=== PATIENT | male | born 1975 | race Caucasian/White ===

== ENCOUNTER 2016-10-29 11:54 | Emergency (ER) | payer OTHER ==
[2016-10-29] MEDS ORDERED: IOPAMIDOL 370 (76%) 100 ML VIAL IV ONE (11:55)
[2016-10-29 12:29] LABS: ABSOLUTE NEUTROPHIL COUNT 7.7 K/mm3 (1.8-7.7); BASO % 0.4 % (0.2-1.0); EOS # 0.2 (0.0-0.5); EOS % 1.8 % (0.9-2.9); HEMATOCRIT 46.6 % (32.0-52.0); HEMOGLOBIN 15.2 gm/l (14.0-18.0); IMM NEUT% 0.4 % (0-1); LYMPH # 1.7 (1.0-4.8); LYMPH % 16.6 % (15-45); MEAN CELL VOLUME 87.1 fl (80.0-94.0); MEAN CORPUSCULAR HEMOGLOBIN 28.4 pg (27.0-31.0); MEAN CORPUSCULAR HGB CONC 32.6 g/dl (33.0-37.0); MEAN PLATELET VOLUME 10.2 fl (7.4-10.4); MONO # 0.5 (0.0-0.8); NEUT % 75.8 % (43-75); PLATELET COUNT 222 K/mm3 (130-400); RED CELL DISTRIBUTION WIDTH 13.3 % (11.5-14.5)
[2016-10-29 12:37] LABS: CALCIUM 9.6 mg/dL (8.6-10.3)
[2016-10-29] MEDS ORDERED: SODIUM CHLORIDE 0.9% 1,000 ML ONE (14:05)
[2016-10-29] MEDS ORDERED: PANTOPRAZOLE SODIUM 40 MG VIAL IV ONE (14:22)
--- NOTE | 2016-10-29 14:57 | RAD ---
CHEST 2 VIEWS HISTORY: Chest pain and shortness of breath. Frontal and lateral chest radiographs dated 10/29/2016. COMPARISON: None. FINDINGS: LUNG VOLUMES: Diminished. FOCAL AIRSPACE OPACITY: No gross airspace consolidation. PLEURAL EFFUSION: None. CARDIOMEDIASTINAL SILHOUETTE: Nonenlarged. PNEUMOTHORAX: None identified. OSSEOUS STRUCTURES: No grossly destructive lesions. External pacing lead noted. IMPRESSION: Hypoventilatory study. To these limits, no acute cardiopulmonary process identified. External pacing lead noted.
[2016-10-29] MEDS ORDERED: FENTANYL 100 MCG/2 ML VIAL ONE (14:58)
--- NOTE | 2016-10-29 15:28 | CT ---
CHEST CTA HISTORY: Chest pain, elevated d-dimer. TECHNIQUE: Following the administration of 80 mL is and 70 intravenous contrast, contiguous axial images were acquired from the thoracic inlet to the diaphragmatic hiatus for CT pulmonary angiography. Three-dimensional imaging was not performed. FINDINGS: PULMONARY ARTERIAL TREE: Technically adequate enhancement: No dominant filling defects. THORACIC AORTA: Normal caliber. No evidence of dissection. LUNGS: Low lung volumes. Atelectasis without airspace consolidation or pleural effusion. ELIZA AND MEDIASTINUM: No abnormally enlarged lymph nodes. AXILLAE: No grossly enlarged lymph nodes. UPPER ABDOMEN:No gross mass effect. OSSEOUS STRUCTURES: Findings of thoracic disc degeneration with prominent disc osteophyte ridge formation at the T9-10 level. IMPRESSION: low lung volumes with subsegmental atelectasis. No CT evidence of proximal order pulmonary embolus. No acute aortic pathology. Focal disc degeneration at T9-10. Results were electronically transmitted to the electronic medical record at 10/29/2016 at 1524 hours.
[2016-10-29 16:31] LABS: ALB/GLOB RATIO 1.3 (>1.0); ALBUMIN 4.3 gm/dL (3.5-5.7); BILIRUBIN,DIRECT 0.2 mg/dL (0.0-0.2); BILIRUBIN,INDIRECT 0.5 mg/dL (0.2-1.0)
== END 2016-10-29 17:36 | disposition home or self-care (01) ==
LOC: ED 11:54
DX: R07.9 Chest pain, unspecified (principal); M99.01 Segmental and somatic dysfunction of cervical region; M99.02 Segmental and somatic dysfunction of thoracic region; R10.12 Left upper quadrant pain; I10 Essential (primary) hypertension